=== PATIENT | male | born 1985 | race Caucasian/White ===

== ENCOUNTER 2018-07-07 17:50 | Emergency (ER) | payer BC ==
[~2018-07-07] VITALS: Ht 188 cm; Wt 83.9 kg
[~2018-07-07 17:50] MED LIST: HYDROCODON-ACE1 EAC7 PO
[2018-07-07 19:01] LABS: ABSOLUTE EOSINOPHILS 0.1 thou/uL (0.0-0.7); ABSOLUTE LYMPHOCYTES 2.3 thou/uL (0.8-5.3); ABSOLUTE MONOCYTES 0.8 thou/uL (0.0-1.2); ABSOLUTE NEUTROPHILS 8.1 thou/uL (1.6-8.1); BASOPHILS 0.3 %; EOSINOPHILS 1.1 %; HEMATOCRIT 43.4 % (42.0-52.0); HEMOGLOBIN 15.2 gm/dL (14.0-18.0); LYMPHOCYTES 20.4 %; MCH 30.5 pg (26.0-34.0); MONOCYTES 6.9 %; MPV 7.1 fl. (7.2-11.1); NUCLEATED RBCS 0 /100WBC; PLATELET COUNT* 237 thou/uL (150-400); POLYS 71.3 %; RBC 4.99 mil/uL (4.50-6.00); WBC 11.4 thou/uL (4.0-11.0)
[2018-07-07 19:04] LABS: URINE BILIRUBIN NEGATIVE (Negative); URINE BLOOD NEGATIVE (Negative); URINE CLARITY CLEAR; URINE COLOR YELLOW; URINE GLUCOSE-RANDOM NEGATIVE (Negative); URINE KETONES NEGATIVE (Negative); URINE LEUKOCYTES NEGATIVE (Negative); URINE NITRITE NEGATIVE (Negative); URINE PROTEIN NEGATIVE (Negative); URINE UROBILINOGEN 0.2 E.U./dl (0.2-1.0)
[2018-07-07 19:12] LABS: AMP/METHAMP Negative (Negative); BARBITURATES Negative (Negative); BENZODIAZEPINES Negative (Negative); COCAINE Negative (Negative); METHADONE Negative (Negative); OPIATES Negative (Negative); PCP Negative (Negative); THC Negative (Negative)
[2018-07-07 19:18] LABS: ALBUMIN 4.3 g/dL (3.4-5.0); ALKALINE PHOSPHATASE 58 U/L (46-116); ANION GAP 11 mmol/L (7-16); BUN 16 mg/dL (7-18); CALCIUM 9.2 mg/dL (8.5-10.1); CHLORIDE 108 mmol/L (98-107); CO2 25 mmol/L (21-32); CREATININE 1.1 mg/dL (0.6-1.3); GLUCOSE 100 mg/dL (70-99); POTASSIUM 3.6 mmol/L (3.5-5.1); SGOT 18 U/L (15-37); SGPT 26 U/L (30-65); SODIUM 144 mmol/L (136-145); TOTAL BILIRUBIN 0.6 mg/dL (<0.1-1.0); TOTAL PROTEIN 7.4 g/dL (6.4-8.2); TROPONIN-I LEVEL <0.06 ng/mL (<0.06)
[2018-07-07] MEDS ORDERED: VISTARIL 25 MG25 M1 PO (20:27)
[2018-07-07 20:46] VITALS: BP 110/69
--- NOTE | 2018-07-08 17:03 | EKG ---
[place] [address] ELECTROCARDIOGRAM REPORT Name: MARILYNN CELAYA Room: [facility]#: [id number] Admission: 07/07/18 Attend Phys: Discharge: 07/07/18 Date of : 81 Report #: [id number] THIS REPORT FOR: //name// [facility] ED Test Date: 2018-07-07 Test Time: 18:45:10 Pat Name: MARILYNN CELAYA Department: Room: Gender: M Director Health: : 1985 Requested By: Jeff Shea Order Number: [id number] MD: Tucker Burr Measurements Intervals [place] Rate: 62 P: 108 [place]: 180 QRS: 7 QRSD: 127 T: 98 QT: 465 QTc: 473 Interpretive Statements Sinus rhythm Baseline artifact No previous ECG available for comparison Electronically Signed On 07-08-2018 17:02:58 CDT by Tucker Burr [email or web address] <ELECTRONICALLY SIGNED> By: Tucker Burr MD, [facility] 07/08/18 1702 1845 1845 Tucker Burr MD, FACC /EPI
== END 2018-07-07 20:46 | disposition home or self-care (01) ==
LOC: M.ERS 17:50
PROVIDERS: Nurse Practitioner Family
DX: F41.9 Anxiety disorder, unspecified (principal); Z79.899 Other long term (current) drug therapy